=== PATIENT | female | born 1950 | race Caucasian/White ===

== ENCOUNTER 2020-08-16 11:04 | Outpatient (CLI) | payer MEDICARE, SELFPAY ==
--- NOTE | ~2020-08-16 | XR_ITS ---
EXAMINATION: XR abdomen/kub 1V EXAM DATE: 08/16/2020 11:28 INDICATION: Left ureteral stone, postlithotripsy. TECHNIQUE: Frontal projection of the upper abdomen, frontal projection lower abdomen/pelvis for inter pretation. There is no prior study for comparison. FINDINGS: There is approximately 6 mm calcific density projecting over expected location of the left kidney. Another density projecting over the left side of the sacrum has a rectangular shaped, possib ly surgical. Multiple pelvic calcifications which are phleboliths. Nonobstructive bowel gas pattern. No organomegaly. There are mild bony degenerative changes. IMPRESSION: Probable left nephrolithiasis. Reviewed, dictated and finalized at location B. [employer]
== END 2020-08-16 11:05 | disposition home or self-care (01) ==
LOC: ANHIMG 11:12
PROVIDERS: Visit Provider Urology
DX: N20.1 Calculus of ureter (principal)
CPT/HCPCS: 74018

== ENCOUNTER 2021-02-22 10:58 | Outpatient (CLI) | payer MEDICARE, SELFPAY ==
--- NOTE | ~2021-02-22 | XR_ITS ---
XR abdomen/kub 1V DATE: 02/22/2021 11:23 INDICATION: Left ureteral stone TECHNIQUE: AP projection, 2 views COMPARISON: 09/02/2020 KUB FINDINGS: Approximately 2.5 x 5.8 mm calcification overlies the expected position of the left uretero pelvic junction. Consider noncontrast CT abdomen pelvis to evaluate for suspected left ureteropelvic calculus. Probable bilateral fallopian tubal ligation. Multiple bilateral pelvic calcified phleboliths. No bowel obstruction is detected. The psoas shadows are intact. No visceromegaly is detected. IMPRESSION: Possible left ureteropelvic calculus Reviewed, dictated and finalized at [facility]. Reviewed, dictated and finalized at location A.
== END 2021-02-22 10:59 | disposition home or self-care (01) ==
LOC: ANHIMG 11:01
PROVIDERS: PCP Internal Medicine; Visit Provider Urology
DX: N20.1 Calculus of ureter (principal)
CPT/HCPCS: 74018

== ENCOUNTER 2021-09-28 15:21 | Outpatient (CLI) | payer MEDICARE, SELFPAY ==
--- NOTE | ~2021-09-28 | XR_ITS ---
XR abdomen/kub 1V 09/28/2021 15:41 Indication: Right flank pain Procedure: KUB Comparison: 02/22/2021 Findings: There are multiple bilateral renal stones. There are pelvic phleboliths. No acute osseous a bnormality. Mild lumbar spondylosis. Lung bases unremarkable. Impression: 1: Bilateral nephrolithiasis. Reviewed, dictated and finalized at location A. [employer] Impression: 1: Bilateral nephrolithiasis.
== END 2021-09-28 15:22 | disposition home or self-care (01) ==
LOC: ANHIMG 15:27
PROVIDERS: PCP Internal Medicine; Visit Provider Nurse Practitioner Adult Health
DX: R10.9 Unspecified abdominal pain (principal); N20.0 Calculus of kidney
CPT/HCPCS: 74018

== ENCOUNTER → 2022-07-03 09:46 | Outpatient (CLI) | payer MEDICARE, SELFPAY ==
--- NOTE | ~2022-07-03 | XR_ITS ---
XR abdomen/kub 1V 07/03/2022 10:00 Indication: Ureteral stone. Procedure: KUB Comparison: 09/28/2021 Findings: The there are bilateral renal stones. There are pelvic phleboliths. Nonobstructive bowel ga s pattern. Mild lumbar spondylosis. No acute osseous abnormality. Impression: 1: Bilateral nephrolithiasis. Reviewed, dictated and finalized at location A. Impression: 1: Bilateral nephrolithiasis.
--- NOTE | ~2022-07-03 | US_ITS ---
US retroperitoneal comp 07/03/2022 11:38 Procedure: Realtime transabdominal ultrasound of the kidneys and bladder. Indication: Kidney stones Comparison: KUB Findings: There are bilateral renal cysts, largest in the right kidney measuring 2.1 cm. Largest on t he left measures 1.7 cm. Stones identified in the kidneys on KUB are not definitely seen by leonides d. No hydronephrosis. No solid renal masses. The right kidney measures 11.5 cm and left kidney measur es 9.5 cm. Bladder within normal limits. Impression: 1: Bilateral renal cysts. Reviewed, dictated and finalized at location A. Impression: 1: Bilateral renal cysts.
== END ==
PROVIDERS: PCP Internal Medicine; Visit Provider Urology
DX: N20.1 Calculus of ureter (principal); N20.0 Calculus of kidney; N28.1 Cyst of kidney, acquired
CPT/HCPCS: 74018; 76770

== ENCOUNTER → 2023-07-04 10:31 | Outpatient (CLI) | payer MEDICARE, SELFPAY ==
--- NOTE | ~2023-07-04 | XR_ITS ---
EXAMINATION: XR abdomen/kub 1V INDICATION: Calculus of the kidney TECHNIQUE: Supine views of the abdomen were obtained on 2 radiographs. COMPARISON: 07/03/2022 FINDINGS: There is a 4 mm stone of the left kidney. There appear to be punctate stones of the right k idney. Phleboliths are noted in the pelvis. No definite stones are identified along the expected cour ses of ureters or within the urinary bladder. There appear to be tubal ligation clips in the pelvis. The bowel gas pattern is normal. IMPRESSION: 1. Bilateral nephrolithiasis. Reviewed, dictated and finalized at location L.
== END ==
PROVIDERS: PCP Internal Medicine; Visit Provider Urology
DX: N20.0 Calculus of kidney (principal)
CPT/HCPCS: 74018

== ENCOUNTER 2024-07-16 10:54 | Outpatient (CLI) | payer MEDICARE, SELFPAY ==
--- NOTE | ~2024-07-16 | XR_ITS ---
Supine and upright views of the abdomen Clinical history: Nephrolithiasis COMPARISON: 07/04/2023 Findings: Bowel gas pattern is nonspecific. No evidence for obstruction or free air. Stable probable 5 mm left renal stone. Probable small right renal stones versus fecal contents.. Osseous structures a re intact. Impression: Suspected bilateral small renal stones, as above. Reviewed, dictated and finalized at [facility]. Impression: Suspected bilateral small renal stones, as above.
== END 2024-07-16 10:55 | disposition home or self-care (01) ==
LOC: MICIMG 10:57
PROVIDERS: PCP Urology; Visit Provider Urology
DX: N20.0 Calculus of kidney (principal)
CPT/HCPCS: 74018